=== PATIENT | male | born 1995 | race Caucasian/White ===

== ENCOUNTER 2018-01-22 15:41 | Emergency (ER) | payer OTHER ==
[~2018-01-22] VITALS: Ht 165.1 cm; Wt 73.3 kg
[~2018-01-22 15:41] MED LIST: CLARINEX5 MG PO; HYDROCODON-ACE1 EAC7 PO; LEVETIRACETAM500 MG PO; NAPROXEN500 MG PO; PERCOCET 5/31 TABLET PO
[2018-01-22 16:06] LABS: APPEARANCE CLEAR ((CLEAR)); BILIRUBIN NEGATIVE; BLOOD NEGATIVE; COLOR YELLOW ((YELLOW)); GLUCOSE (STRIP) NEGATIVE; KETONES NEGATIVE; LEUKOCYTES NEGATIVE; NITRITE NEGATIVE; PROTEIN (STRIP) NEGATIVE; SPECIFIC GRAVITY 1.021 (1.000-1.030); UCUL ADDED? NO; UROBILINOGEN 0.2 MG/DL (0.2-1.0)
[2018-01-22 16:22] LABS: HEMATOCRIT 42.1 % (38.0-50.0); HEMOGLOBIN 15.4 G/DL (12.5-16.6); MCH 31.4 PG (29.0-34.0); MCHC 36.6 G/DL (30.0-36.0); MCV 85.9 FL (86-99); PLATELET COUNT 223 K/uL (156-360); RBC DIS.WIDTH-CV 11.2 % (11.8-14.6); RBC DIS.WIDTH-SD 35.4 % (39-53); WHITE BLOOD COUNT 6.6 K/uL (4.1-10.2)
[2018-01-22 16:37] LABS: CHLORIDE 104 mEq/L (99-109); POTASSIUM 3.8 mEq/L (3.7-5.4); SODIUM 141 mEq/L (136-147)
[2018-01-22 16:38] LABS: GLUCOSE 83 mg/dL (70-99)
[2018-01-22 16:42] LABS: GFR ESTIMATE (CALCULATED) > 59 mL/min/ (58.99-99999)
[2018-01-22 16:43] LABS: UREA NITROGEN (BUN) 16 mg/dL (9-23)
[2018-01-22] MEDS ORDERED: FLEXERIL10 MG PO (17:39)
[2018-01-22] MEDS ORDERED: NAPROSYN500 MG PO (17:39)
[2018-01-22 17:46] VITALS: BP 118/65
== END 2018-01-22 18:07 | disposition home or self-care (01) ==
LOC: EME 15:41
DX: R10.9 Unspecified abdominal pain (principal); J45.909 Unspecified asthma, uncomplicated; Z88.0 Allergy status to penicillin
CPT/HCPCS: 74018; 80048; 81003; 85027; 99281; 99284